=== PATIENT | female | born 1960 | race Caucasian/White ===

== ENCOUNTER 2016-04-26 14:01 | Emergency (ER) | payer OTHER ==
[~2016-04-26] VITALS: Ht 157.5 cm; Wt 76.2 kg
[~2016-04-26 14:01] MED LIST: ALBUTEROL0.09 MG/A1 INH; ANUSOL HC-HEMOR1 SUP RC; BACTRIM DS 8001 TAB PO; BACTROBAN OINT.15 GM TOP; BLM PO; CYCLOBENZAPRINE10 M2 PO; LISINOPRIL10 MG PO; MEDROL DOSEPAK1 PAC PO; MOTRIN 400MG (400 MG PO; NEXIUM 40MG40 MG PO; OXYCODONE5 M1 PO; SYNTHROID75 MCG PO; TESSALON PERLE100 MG PO; ZITHROMAX Z-PA250 M1 PO
[2016-04-26] MEDS ORDERED: DEXILANT60 M1 PO (14:52)
[2016-04-26] MEDS ORDERED: STOOL SOFTENER1 EAC2 PO (14:53)
[2016-04-26] MEDS ORDERED: FUROSEMIDE20 M1 PO (14:53)
--- NOTE | 2016-04-26 15:24 | ED GENERAL ADULT ---
History of Present Illness General Chief Complaint: General Adult Stated Complaint: SWOLLEN LEGS,DIZZY Source: patient Exam Limitations: no limitations Vital Signs & Intake/Output Vital Signs & Intake/Output Vital Signs Date Time Temp Pulse Resp B/P Pulse O2 O2 Flow FiO2 Ox Delivery Rate 04/26 1621 97.3 79 16 116/71 97 Room Air 04/26 1501 Room Air 04/26 1409 96.9 89 16 110/73 95 Room Air Allergies Coded Allergies: acetaminophen (From TYLENOL) (Severe, RAPID HR 04/26/16) blueberry (Severe, THROAT SWELLS 04/26/16) Penicillins (Intermediate, HIVES 04/26/16) latex (FULL BODY SWELLING AND ITCHING 04/26/16) Reconcile Medications Dexlansoprazole (Dexilant) 60 MG ANDREA.BP 1 CAP PO DAILY GI (Reported) Furosemide 20 MG TABLET 1 TAB PO DAILY PRN WATER PILL (Reported) Levothyroxine Sodium (Synthroid) 75 MCG TABLET 1 TAB PO DAILY AC THYROID ( Reported) Lisinopril 10 MG TABLET 1 TAB PO QPM CARDIAC (Reported) Sennosides/Docusate Sodium (Stool Softener Tablet) 8.6 MG-50 MG TABLET 1 TAB PO QPM STOOL SOFTENER (Reported) Triage Note: PT STATES SHE HAS SWELLING IN BOTH HER LEGS AND IS HAVING A HARD TIME WALKING AND STATES SHE HAD BLOODWORK HERE TODAY AND DECIDED TO GET CHECKED OUT. PT STATES HER KIDNEYS ARE KILLING HER AND THAT SHE HAS STAGE 3 KIDNEY PROBLEMS. Triage Nurses Notes Reviewed? yes Timing: recent history Injury Environment: home Severity: moderate, severe No Modifying Factors: none HPI: 55-year-old female with a history of chronic renal disease comes into emergency room because she is having pain in her bilateral legs earlier today and had some associated dizziness and felt like she was in a fall over. Patient reports that she has chronic pain in her legs. Patient has venous insufficiency. Patient reports that this is been going on for many years. Patient reports that she gets numbness at times. Dizziness at times. Denies any chest pain or shortness of breath. Patient had outpatient blood work done this morning by her primary care doctor due to worsening symptoms recently. Patient comes into emergency room for further evaluation. Denies any headache. Denies any vomiting. Denies any fever. (MARIZOL REYES) Past History Travel History Traveled to [place] past 21 day No Medical History Any Pertinent Medical History? see below for history Cardiovascular: LEAKY VALVUE Renal: KIDNEY DISEASE Endocrine: hypothyroidism Influenza Vaccine: 02/13/20 Surgical History Surgical History: non-contributory Psychosocial History What is your primary language Peruvian Tobacco Use: Current Daily Use Daily Tobacco Use Amount/Type: => 5 Cigarettes daily ETOH Use: occasional use Illicit Drug Use: denies illicit drug use Family History Hx Contributory? No (MARZIOL REYES) Review of Systems Review of Systems Constitutional: Reports: no symptoms. EENTM: Reports: no symptoms. Respiratory: Reports: no symptoms. Cardiovascular: Reports: no symptoms. GI: Reports: no symptoms. Genitourinary: Reports: see HPI. Musculoskeletal: Reports: see HPI. Skin: Reports: no symptoms. Neurological/Psychological: Reports: see HPI. Hematologic/Endocrine: Reports: no symptoms. Immunologic/Allergic: Reports: no symptoms. All Other Systems: Reviewed and Negative (MARIZOL REYES) Physical Exam Physical Exam General Appearance: well developed/nourished, alert, awake Head: atraumatic, normal appearance Eyes: Bilateral: normal appearance, PERRL, EOMI. Ears, Nose, Throat: normal pharynx, normal ENT inspection Neck: normal inspection, full range of motion Respiratory: normal breath sounds, no respiratory distress Cardiovascular: regular rate/rhythm Gastrointestinal: soft Back: normal inspection Extremities: normal inspection, normal range of motion Neurologic/Psych: awake, alert, oriented x 3, normal gait, normal mood/affect Skin: intact, normal color Core Measures ACS in differential dx? No CVA/TIA Diagnosis: No Severe Sepsis Present: No Septic Shock Present: No (MARIZOL REYES) Progress Differential Diagnoses I considered the following diagnoses in my evaluation of the patient: DVT, neuropathy, vertigo, cardiac arrhythmia, electrolyte imbalance, CVA, Plan of Care: Orders Procedure Date/time Status EKG 04/26 1458 Active Laboratory Tests 04/26/16 1458: [id number] Pept Cancelled, CBC w Diff Cancelled, WBC Cancelled, RBC Cancelled, Hgb Cancelled, Hct Cancelled, MCV Cancelled, MCH Cancelled, RDW Cancelled, Plt Count Cancelled, MPV Cancelled, PUBS MCHC Cancelled, Urine Color Cancelled, Urine Clarity Cancelled, Urine pH Cancelled, Ur Specific [place] Cancelled, Urine Protein Cancelled, Urine Ketones Cancelled, Urine Nitrite Cancelled, Urine Bilirubin Cancelled, Urine Urobilinogen Cancelled, Ur Leukocyte Esterase Cancelled, Ur Microscopic Cancelled, Urine Hemoglobin Cancelled, Urine Glucose Cancelled Diagnostic Imaging: Viewed by Me: Radiology Read. Discussed w/RAD: Radiology Read. 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 COMPARISON: Chest 10 02/15/2014. TECHNIQUE: Portable AP view of the chest was obtained. FINDINGS: No significant abnormality is noted involving the heart, lungs, mediastinum, bony thorax or soft tissues. IMPRESSION: Unremarkable chest examination. DICTATED BY: SRI WALKER MD DATE/TIME DICTATED:04/26/161549 ACCESS RN :LANCE DATE/TIME TRANSCRIBED:04/26/161549 Initial ED EKG: normal intervals, normal p-waves, normal QRS complex, normal sinus rhythm, rate (76) (HERACLIO PATRICIO,MARIZOL) Departure Departure Disposition: HOME OR SELF CARE Condition: Stable Clinical Impression Primary Impression: Bilateral leg pain Secondary Impressions: Dizziness Referrals: ATILIO MORENO APRN (PCP/Family) Additional Instructions: Follow-up with your primary care doctor to go over results. Return to emergency room if any inability to ambulate, passing out, chest pain, shortness of breath or any other concerns. Please go over all results of today's visit with your primary care doctor. Contact your primary care doctor to let them know you were here in the emergency room. There may be nonspecific findings which may not be related to your visit today here in the emergency room but may require further evaluation and chronic monitoring by your primary care doctor. If you had a laceration today the chance of foreign body always remains. You should follow-up with your primary care doctor for recheck in 3-5 days for a wound check. If you had an x-ray done there is a chance that a fracture could have been missed on initial read and you should follow-up with your primary care doctor for repeat x-rays if symptoms persist. If your blood pressure was elevated here in the emergency room please have rechecked by her primary care doctor within the next 48 hours by your primary care doctor. If you were prescribed a narcotic here in the emergency room or any type of controlled substances you're not allowed to drive while taking this medication or operate any type of heavy machinery. Narcotics can make you feel lightheaded dizziness nausea and can cause constipation. You may need to parts picker a stool softener. Thank you for choosing [facility] emergency room. Please return to the emergency room immediately if you have any other concerns worsening of symptoms. Departure Forms: Customer Survey General Discharge Information Comments 04/26/2016 7:46:49 PM Patient able to ambulate with no difficulty here in the emergency room. Clinically looks well. Nontoxic-appearing. In no apparent distress. Patient will follow up with her primary care doctor. Case discussed with Dr. kidd. Patient understands and agrees with plan of care. Patient reevaluated multiple times. (MARIZOL REYES) PA/CLINICAL DATA ANALYST Co-Sign Statement Statement: ED Attending supervision documentation- [] I saw and evaluated the patient. I have also reviewed all the pertinent lab results and diagnostic results. I agree with the findings and the plan of care as documented in the PA's/CLINICAL DATA ANALYST's documentation. [X] I have reviewed the ED Record and agree with the PA's/CLINICAL DATA ANALYST's documentation. [] Additions or exceptions (if any) to the PAs/CLINICAL DATA ANALYST's note and plan are summarized below: [] (AVEL BRINK,STACIA) Critical Care Note Critical Care Note Critical Care Time: non-applicable (MARIZOL REYES)
--- NOTE | 2016-04-26 15:54 | RADIOLOGY REPORT ---
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 COMPARISON: Chest 10 02/15/2014. TECHNIQUE: Portable AP view of the chest was obtained. FINDINGS: No significant abnormality is noted involving the heart, lungs, mediastinum, bony thorax or soft tissues. IMPRESSION: Unremarkable chest examination.
[2016-04-26 16:21] VITALS: BP 116/71
== END 2016-04-26 16:23 ==
LOC: ERH 14:01
DX: M79.604 Pain in right leg (principal); M79.605 Pain in left leg; R42 Dizziness and giddiness
CPT/HCPCS: 93005; 93010